=== PATIENT | female | born 1955 | race Caucasian/White ===

== ENCOUNTER → 2017-03-19 | Day surgery (SDC) | payer BC ==
[~2017-03-19] MED LIST: ACETAMINOPHEN500 M2 PO; ALEVE PO; ATORVASTATIN CA10 MG PO; BLACK COHASH PO; CERTAGEN PO; CLARITIN10 M2 PO; CLARITIN5 MG/5 ML; CRESTOR10 MG PO; FISH OIL300 MG PO; GLUCOSAMINE PO; MOBIC15 MG PO; PRILOSEC PO; SYNTHROID125 PO; TRICOR PO; VITAMIN B650 M1 PO; ZESTORETIC 20/11 TAB PO; ZYRTEC PO
--- NOTE | ~2017-03-19 | OR ---
Unit #: [id number] #: [id number] Patient: JAMIE SIMEON [id number] [address] [place], [place] [address] [id number] O MR#: [id number] NAME: JAMIE SIMEON ROOM: Date of Procedure: 03/19/2017 Admission Date: 03/19/2017 Surgeon: Wolf Ayon M.D. : 1955 Attending Physician: Evans Ayon Primary Care Physician: Teofilo Urban Jr., M.D. SURGERY CENTER OPERATIVE NOTE PROCEDURE PERFORMED Lumbar epidural steroid injection under x-ray guided needle placement with provider administered conscious sedation. PREOPERATIVE DIAGNOSES 1. Acute lumbar radiculitis. 2. Spinal stenosis, lumbosacral spine. 3. Degenerative joint disease, lumbosacral spine. 4. Herniated disk, L4-L5. 5. Herniated disk, L5-S1. 6. Degenerative disk disease, lumbosacral spine. 7. Facet arthrosis, lumbosacral spine. 8. Symptomatic facet arthralgia, lumbosacral spine. INDICATIONS FOR PROCEDURE The patient presents today with longstanding history of lumbar radicular pain left greater than right, which has failed to respond to conservative measures consisting of medications and physical therapy. She is in possession of MRI report, which shows diffuse disease; however, disease most notably worse at L4-L5 and L5-S1 and does have a facet arthrosis component. After discussing risks and benefits of proceeding today with epidural steroid injection today referral to [facility] for potential radiofrequency ablation and return to this clinic on 04/21/2017, the patient agreed this would be the appropriate course of action. DESCRIPTION OF PROCEDURE She was then taken to the operating room, where she was prepped and draped in sterile manner. Standard monitors were applied. She was sedated with 2 mg of IV Versed and required an additional 2 mg of IV Versed throughout the duration of the procedure. Lumbar epidural space accessed at L4-L5 level using loss of resistance technique and x-ray guidance. Needle placement was confirmed with injection of 2 mL of Omnipaque. There was good superior and inferior flow at this L4-L5 location. Total x-ray time for this needle placement was 5 seconds. Following successful needle placement confirmation at the L4-L5 level, the patient received an injectate containing 2 mL normal saline, 2 mL of 0.25% bupivacaine, and 80 mg of methylprednisolone. She tolerated this procedure well. She was discharged home with followup instructions, which include return as described above. Dictated by... Wolf Ayon M.D. Unit #: [id number] #: [id number] Patient: JAMIE SIMEON LEANNE/brittany TD: 03/19/2017 15:27 JOB #: [id number] CC: Maksim Ward M.D. SURGERY CENTER OPERATIVE NOTE Page 1 of 1 X Evans Ayon MD X PROCEDURE OPERATIVE NOTE
== END | disposition home or self-care (01) ==
LOC: CCSC 13:32
DX: M51.17 Intervertebral disc disorders with radiculopathy, lumbosacral region (principal); M51.16 Intervertebral disc disorders with radiculopathy, lumbar region; M48.07 Spinal stenosis, lumbosacral region; M47.27 Other spondylosis with radiculopathy, lumbosacral region; E03.9 Hypothyroidism, unspecified; K21.9 Gastro-esophageal reflux disease without esophagitis; Z88.2 Allergy status to sulfonamides; Z79.1 Long term (current) use of non-steroidal anti-inflammatories (NSAID); Z79.899 Other long term (current) drug therapy; Z98.51 Tubal ligation status; Z98.890 Other specified postprocedural states
CPT/HCPCS: J1040; J2250

== ENCOUNTER → 2017-04-21 | Day surgery (SDC) | payer BC ==
--- NOTE | ~2017-04-21 | OR ---
Unit #: [id number] #: [id number] Patient: JAMIE SIMEON [id number] [address] [address] [id number] O MR#: [id number] NAME: JAMIE SIMEON ROOM: Date of Procedure: 04/21/2017 Admission Date: 04/21/2017 Surgeon: Wolf Ayon M.D. : 1955 Attending Physician: Wolf yAon M.D. Primary Care Physician: Teofilo Urban Jr., M.D. SURGERY CENTER OPERATIVE NOTE PROCEDURE PERFORMED Lumbar epidural steroid injection under x-ray guided needle placement with provider administered conscious sedation. PREOPERATIVE DIAGNOSES 1. Acute lumbar radiculitis. 2. Spinal stenosis, lumbosacral spine. 3. Herniated disk, L4-L5. 4. Herniated disk, L5-S1. 5. Degenerative joint disease, lumbosacral spine. 6. Degenerative disk disease, lumbosacral spine. 7. Facet arthrosis, lumbosacral spine. INDICATIONS FOR PROCEDURE The patient presents today status post one previous lumbar approach epidural steroid injection for an acute radiculitis, which had failed to respond to conservative therapy. The patient states she got excellent relief with approximately 60% to 80% relief of her symptoms. However, in the course of the intervening time for initial visit and today, her pain has returned to the point that she is desirous of a second epidural steroid injection. She also states that the pain free moments of her radicular pain seem to unmask a facet arthralgia pain. After discussing risks and benefits of proceeding today with second lumbar approach epidural steroid injection at the L5-S1 level as well as referral to [facility] for potential radiofrequency ablation, the patient agreed this would be the appropriate course of action. She was also scheduled to follow up here on 07/30/2017. DESCRIPTION OF PROCEDURE Following these discussions, Ms. Russo was taken to the operating room, where she was prepped and draped in a sterile manner. Standard monitors were applied. She was sedated with 2 mg of IV Versed and lumbar epidural space accessed at the L5-S1 level using loss of resistance technique and x-ray guidance. Needle placement was confirmed with injection of 2 mL of Omnipaque. There was good superior and inferior flow at this L5-S1 needle placement. Total x-ray time was 3 seconds. Following successful needle placement confirmation, the patient received an injectate containing 4 mL normal saline and 80 mg of methylprednisolone. She tolerated this procedure well. She was discharged home with followup instructions, which are included above. Dictated by... Unit #: [id number] #: [id number] Patient: JAMIE SIMEON [place] Resendiz/brittany TD: 04/21/2017 14:35 JOB #: [id number] CC: Maksim Ward M.D. SUR[facility]ERY CENTER OPERATIVE NOTE Page 1 of 1 X Evans Ayon MD X PROCEDURE OPERATIVE NOTE
== END | disposition home or self-care (01) ==
LOC: CCSC 12:25
DX: M51.17 Intervertebral disc disorders with radiculopathy, lumbosacral region (principal); M51.16 Intervertebral disc disorders with radiculopathy, lumbar region; M48.07 Spinal stenosis, lumbosacral region; M47.27 Other spondylosis with radiculopathy, lumbosacral region; E03.9 Hypothyroidism, unspecified; K21.9 Gastro-esophageal reflux disease without esophagitis; M19.90 Unspecified osteoarthritis, unspecified site; Z88.2 Allergy status to sulfonamides; Z79.1 Long term (current) use of non-steroidal anti-inflammatories (NSAID); Z79.899 Other long term (current) drug therapy; Z98.51 Tubal ligation status; Z98.890 Other specified postprocedural states
CPT/HCPCS: J1040; J2250